=== PATIENT | female | born 1960 | race African-American/Black ===

== ENCOUNTER 2021-08-15 23:29 | Emergency (ER) | payer OTHER ==
--- OUTSIDE RECORDS SUMMARY | 2021-08-15 23:32 | XMS REPORT | Continuity of Care Document ---
:1960 Author Organization [facility] t Address [address] [place] [address] Care Team Providers Name Role Phone Brisa Harvey Attending Clinician Tres Rios MD Attending Clinician Payers Payer Name Policy Type Policy Number Effective Date Expiration Date S ource Problems This patient has no known problems. Allergies, Adverse Reactions, Alerts Allergy Allergy Status Severity Reaction(s) Onset Inactive Treating Comm ents Source Name Type Date Date Clinician Keily Shultz Active Hives [facility] to 7-26 ity of adverse 00:00: [place] reaction 00 Medical s Branch Social History Social Habit Start Date Stop Date Quantity Comments Source Sex Assigned At [facility] Smoking Status Start Date Stop Date Source Unknown if ever smoked [facility] Never smoker [facility] Medications Ordered Filled Start Stop Current Ordering Indication Dosage Frequency Signature Comments Components Source Medication Medication Date Date Medication? Clinician (SIG) Name Name triamcinolo 2019- No 16mg Unive rs ne 10-26 ity of acetonide 17:30: 05:29 [place] (KENALOG) 00 :00 Medical injection Branch 16 mg triamcinolo 2019- No 16mg Unive rs ne 10-26 ity of acetonide 17:30: 05:29 [place] (KENALOG) 00 :00 Medical injection Branch 16 mg methylPREDN Yes [id number] Take by [facility] 10-05 9105 mouth ity of (MEDROL, 00:00: SEE-INSTRU Yaakov as RAJESH,) 4 mg 00 CTIONS. Medica l tablets follow Branch package directions methylPREDN Yes [id number] Take by [facility] 10-05 9105 mouth ity of (MEDROL, 00:00: SEE-INSTRU Yaakov as RAJESH,) 4 mg 00 CTIONS. Medica l tablets follow Branch package directions methylPREDN Yes [id number] Take by [facility] 10-05 9105 mouth ity of (MEDROL, 00:00: SEE-INSTRU Yaakov as RAJESH,) 4 mg 00 CTIONS. Medica l tablets follow Branch package directions methylPREDN Yes [id number] Take by [facility] 10-05 9105 mouth ity of (MEDROL, 00:00: SEE-INSTRU Yaakov as RAJESH,) 4 mg 00 CTIONS. Medica l tablets follow Branch package directions furosemide Yes TAKE 1 Unive rs 20 mg 6-08 TABLET BY ity of tablet 00:00: MOUTH [place] 00 EVERY DAY Medical NEEDED Branch furosemide Yes TAKE 1 Unive rs 20 mg 6-08 TABLET BY ity of tablet 00:00: MOUTH [place] 00 EVERY DAY Medical NEEDED Branch furosemide Yes TAKE 1 Unive rs 20 mg 6-08 TABLET BY ity of tablet 00:00: MOUTH [place] 00 EVERY DAY Medical NEEDED Branch furosemide Yes TAKE 1 Unive rs 20 mg 6-08 TABLET BY ity of tablet 00:00: MOUTH [place] 00 EVERY DAY Medical NEEDED Branch esomeprazol Yes TAKE 1 Univ ers e 40 mg 5-09 CAPSULE BY ity of capsule 00:00: MOUTH [place] 00 EVERY DAY Medical Branch traMADol 50 Yes TAKE 1 Univ ers mg tablet 5-09 TABLET BY ity o f 00:00: MOUTH [place] 00 EVERY 8 Medical HOURS Branch NEEDED esomeprazol Yes TAKE 1 Univ ers e 40 mg 5-09 CAPSULE BY ity of capsule 00:00: MOUTH [place] 00 EVERY DAY Medical Branch traMADol 50 Yes TAKE 1 Univ ers mg tablet 5-09 TABLET BY ity o f 00:00: MOUTH [place] 00 EVERY 8 Medical HOURS Branch NEEDED esomeprazol Yes TAKE 1 Univ ers e 40 mg 5-09 CAPSULE BY ity of capsule 00:00: MOUTH [place] 00 EVERY DAY Medical Branch traMADol 50 Yes TAKE 1 Univ ers mg tablet 5-09 TABLET BY ity o f 00:00: MOUTH [place] 00 EVERY 8 Medical HOURS Branch NEEDED esomeprazol Yes TAKE 1 Univ ers e 40 mg 5-09 CAPSULE BY ity of capsule 00:00: MOUTH [place] 00 EVERY DAY Medical Branch traMADol 50 Yes TAKE 1 Univ ers mg tablet 5-09 TABLET BY ity o f 00:00: MOUTH [place] 00 EVERY 8 Medical HOURS Branch NEEDED losartan-hy Yes 1{tbl} Take 1 Un sara drochloroth 4-28 tablet by ity of iazide 00:00: mouth [place] 100-25 mg 00 daily. Medical per tablet Branch losartan-hy Yes 1{tbl} Take 1 Un sara drochloroth 4-28 tablet by ity of iazide 00:00: mouth [place] 100-25 mg 00 daily. Medical per tablet Branch losartan-hy Yes 1{tbl} Take 1 Un sara drochloroth 4-28 tablet by ity of iazide 00:00: mouth [place] 100-25 mg 00 daily. Medical per tablet Branch losartan-hy Yes 1{tbl} Take 1 Un sara drochloroth 4-28 tablet by ity of iazide 00:00: mouth [place] 100-25 mg 00 daily. Medical per tablet Branch Vital Signs Vital Name Observation Time Observation Value Comments Source Body height 2018-10-26 15:51:00 168.9 cm [facility] Body weight 2018-10-26 15:51:00 89.812 kg [facility] BMI 2018-10-26 15:51:00 31.48 kg/m2 [facility] Body height 2018-10-26 15:51:00 168.9 cm [facility] Body weight 2018-10-26 15:51:00 89.812 kg [facility] BMI 2018-10-26 15:51:00 31.48 kg/m2 [facility] Body height 2018-10-05 13:53:00 168.9 cm [facility] Body weight 2018-10-05 13:53:00 89.812 kg [facility] BMI 2018-10-05 13:53:00 31.48 kg/m2 [facility] Procedures This patient has no known procedures. Encounters Start End Encounter Admission Attending Care Care Encounter Source Date/Time Date/Time Type Type Clinicians Facility Department ID 2018-10-26 2018-10-26 Office MARIA C Nieto [id number] [facility] 10:51:17 11:28:21 Visit Taj S [employer] [id number] it y of Surgical [id number] Yaakov as Specialti [phone] Ri dical es [address] Branch [place] 2018-10-26 2018-10-26 Office MARIA C Nieto [id number] 10:51:17 11:28:21 Visit Taj Ledezma [employer] [id number] Surgical [id number] Specialti [phone] es [address] [place] 2018-10-05 2018-10-05 Office MARIA C Rios [id number] [facility] 08:42:59 09:11:02 Visit Curt Joshua [employer] [id number] it y of Surgical [id number] Yaakov as Specialti [phone] Ri dical es [address] [place] Results This patient has no known results.
[2021-08-16 00:33] LABS: Absolute Lymphocytes (CBC) 2.1 K/uL (0.7-4.9); Hematocrit 36.4 % (36.0-45.0); Lymphocytes % 30.2 % (15.3-44.8); MPV 9.4 fL (7.6-11.3); RBC Red Blood Cell Count 5.15 M/uL (3.86-4.86)
[2021-08-16] MEDS ORDERED: DIPHENHYDRAMINE 50 MG/ML VIAL ONE (00:34)
[2021-08-16] MEDS ORDERED: NA CHLORIDE 0.9% 100 ML ONE (00:34)
[2021-08-16] MEDS ORDERED: METOCLOPRAMIDE 10 MG/2mL INJ ONE (00:34)
[2021-08-16 00:48] LABS: Potassium 3.4 mmol/L (3.5-5.1); Troponin High Sensitivity 35.8 pg/mL (<58.9)
--- NOTE | 2021-08-16 04:40 | EDPHYS ---
Physician Documentation [facility] Name: Sandra Fuller Age: 61 yrs Sex: Female : 1960 Arrival Date: 08/15/2021 Time: 23:34 Bed 7 Private MD: ED Physician Duran Medina HPI: 08/16 04:42 This 61 yrs old Black Female presents to ER via Wheelchair with complaints of Blood ms3 Pressure Problem. 04:42 The patient complains of pain to the generalized. The patient describes the headache as ms3 aching. Onset: The symptoms/episode began/occurred acutely, today. Associated signs and symptoms:. 04:43 61-year-old female presents for hypertension that began 1 hours prior to arrival. ms3 Patient endorses headache. Patient denies chest pain, nausea, vomiting, shortness of breath. Patient states her head pain is an 8/10 and generalized. Patient describes the pain as throbbing.. Onset: The symptoms/episode began/occurred 11 hour(s) ago. Severity of symptoms: At their worst the symptoms were severe in the emergency department the symptoms are unchanged. Historical: - Allergies: 08/15 23:46 No Known Allergies; as6 - Home Meds: 23:46 sucralfate 1 gram Oral tab 1 tab 2 times per day [Active]; omeprazole 40 mg Oral cpDR 1 as6 cap once daily [Active]; losartan-hydrochlorothiazide 100-25 mg oral tab 1 tab once daily [Active]; - PMHx: 23:46 Hypertensive disorder; acid reflux; as6 - PSHx: 23:46 None; as6 - Immunization history:: Client reports receiving the 2nd dose of the Covid vaccine, moderna. - Social history:: Smoking status: Patient denies any tobacco usage or history of. ROS: 08/16 04:43 Constitutional: Negative for fever, and chills. Neck: Negative for injury, pain, and ms3 swelling, Cardiovascular: Negative for chest pain, and palpitations. Respiratory: Negative for shortness of breath, cough, wheezing, and pleuritic chest pain, Abdomen/GI: Negative for abdominal pain, nausea, vomiting, diarrhea, and constipation, MS/Extremity: Negative for injury and deformity, Skin: Negative for injury, rash, and discoloration. Neuro: Positive for headache. All other systems are negative. Exam: 00:01 ECG was reviewed by the Attending Physician. ms3 04:43 Constitutional: This is a well developed, well nourished patient who is awake, alert, ms3 and in no acute distress. Head/Face: Normocephalic, atraumatic. Neck: Trachea midline, no cervical lymphadenopathy. Supple, full range of motion without nuchal rigidity, or vertebral point tenderness. No Meningismus. Chest/axilla: Normal chest wall appearance and motion. Nontender with no deformity. Cardiovascular: Regular rate and rhythm with a normal S1 and S2. No gallops, murmurs, or rubs. Normal PMI, no JVD. No pulse deficits. Respiratory: Lungs have equal breath sounds bilaterally, clear to auscultation and percussion. No rales, rhonchi or wheezes noted. No increased work of breathing, no retractions or nasal flaring. Abdomen/GI: Soft, non-tender, with normal bowel sounds. No distension or tympany. No guarding or rebound. No evidence of tenderness throughout. Skin: Warm, dry with normal turgor. Normal color with no rashes, no lesions, and no evidence of cellulitis. MS/ Extremity: Pulses equal, no cyanosis. Neurovascular intact. Full, normal range of motion. Neuro: Awake and alert, GCS 15, oriented to person, place, time, and situation. Cranial nerves II-XII grossly intact. Motor strength 5/5 in all extremities. Sensory grossly intact. Cerebellar exam normal. Normal gait. Psych: Awake, alert, with orientation to person, place and time. Behavior, mood, and affect are within normal limits. Vital Signs: 08/15 23:44 BP 182 / 77; Pulse 49; Resp 18 S; Temp 97.8(O); Pulse Ox 100% on R/A; Weight 83.91 kg as6 (R); Height 5 ft. 6 in. (167.64 cm) (R); Pain 8/10; 23:57 BP 186 / 84; kd3 06 00:36 BP 173 / 88; Pulse 59; Resp 19; Pulse Ox 100% on R/A; kd3 01:22 BP 170 / 61; Pulse 54; Resp 16; Pulse Ox 100% on R/A; kd3 02:25 BP 150 / 81; Pulse 52; Resp 16; Pulse Ox 100% on R/A; kd3 03:51 BP 136 / 90; Pulse 52; Resp 17; Pulse Ox 99% on R/A; ke1 05:05 BP 142 / 76; Pulse 54; Resp 18; Pulse Ox 99% on R/A; kd3 08/15 23:44 Body Mass Index 29.86 (83.91 kg, 167.64 cm) as6 MDM: 08/15 23:37 Patient medically screened. ms3 08/16 04:43 Differential Diagnosis HTN vs ACS vs ICH. Data reviewed: vital signs, nurses notes, lab ms3 test result(s), EKG, radiologic studies, CT scan, plain films, and as a result, I will discharge patient. Data interpreted: quality assurance monitor body: rate is 52 beats/min, rhythm is normal sinus rhythm, regular, with no ectopy, Interpretation: normal rate, normal rhythm. Test interpretation: by ED physician or midlevel provider: ECG. Counseling: I had a detailed discussion with the patient and/or guardian regarding: the historical points, exam findings, and any diagnostic results supporting the discharge/admit diagnosis, lab results, radiology results, the need for outpatient follow up, to return to the emergency department if symptoms worsen or persist or if there are any questions or concerns that arise at home. ED course: Discussed labs, CT, chest x-ray, physical exam findings with patient. Patient to follow-up with Cardiology in 1 to 2 days. Patient understands and agrees with plan. All questions were answered. Return precautions discussed include worsening symptoms, or any other concerns. On reevaluation patient is alert and oriented x4, in no apparent distress, nontoxic-appearing, speaking full sentences, ambulatory in emergency department.. 08/16 00:11 Order name: Basic Metabolic Panel; Complete Time: 00:51 ms3 08/16 00:11 Order name: CBC with Diff; Complete Time: 00:51 ms3 08/16 00:11 Order name: CT Head Brain wo Cont ms3 08/16 00:11 Order name: Troponin HS; Complete Time: 00:51 ms3 08/16 00:11 Order name: XRAY Chest (1 view) ms3 08/16 03:01 Order name: Troponin High Sensitivity; Complete Time: 04:38 ms3 08/16 00:11 Order name: EKG; Complete Time: 00:12 ms3 08/16 00:11 Order name: Cardiac monitoring; Complete Time: 00: ms3 08/16 00:11 Order name: EKG - Nurse/Tech; Complete Time: : ms3 08/16 00:11 Order name: IV Saline Lock; Complete Time: 00: ms3 08/16 00:11 Order name: Labs collected and sent; Complete Time: 00: ms3 08/16 00:11 Order name: O2 Per Protocol; Complete Time: ms3 08/16 00:11 Order name: O2 Sat Monitoring; Complete Time: : ms3 EC:01 Rate is 51 beats/min. Rhythm is regular. QRS [place] is Normal. PA interval is normal. QRS ms3 interval is normal. Clinical impression: Sinus bradycardia and PVC. Interpreted by me. Administered Medications: 00:35 Drug: Reglan (metoCLOPramide) 10 mg Route: IVP; Site: right forearm; kd3 05:06 Follow up: Response: No adverse reaction kd3 00:35 Drug: Benadryl (diphenhydrAMINE) 25 mg Route: IVP; Site: right forearm; kd3 05:06 Follow up: Response: No adverse reaction kd3 Disposition Summary: 08/16/21 04:40 Discharge Ordered Location: Home ms3 Condition: Stable ms3 Diagnosis - Essential (primary) hypertension ms3 - Headache ms3 Followup: ms3 - With: Bahman Tatum MD - When: 1 - 2 days - Reason: Recheck today's complaints Discharge Instructions: - Discharge Summary Sheet ms3 - General Headache Without Cause ms3 - Hypertension, Adult, [id number] ms3 Forms: - Medication Reconciliation Form ms3 - Thank You Letter ms3 - Antibiotic Education ms3 - Prescription Opioid Use ms3 Signatures: Dispatcher [employer] Duran Jane DO DO ms3 Jag Rubin RN RN as6 Lesly Bee RN RN kd3
--- NOTE | 2021-08-16 04:40 | ER ---
Nurse's Notes [facility] Name: Sandra Fuller Age: 61 yrs Sex: Female : 1960 Arrival Date: 08/15/2021 Time: 23:34 Bed 7 Private MD: Diagnosis: Essential (primary) hypertension;Headache Presentation: 08/15 23:44 Chief complaint: Patient states: "I have been watching my blood pressure go upa nd up as6 and up all day. now I feel dizzy, have a headache". Coronavirus screen: At this time, the client does not indicate any symptoms associated with coronavirus-19. Ebola Screen: No symptoms or risks identified at this time. Initial Sepsis Screen: Does the patient meet any 2 criteria? No. Patient's initial sepsis screen is negative. Does the patient have a suspected source of infection? No. Patient's initial sepsis screen is negative. Risk Assessment: Do you want to hurt yourself or someone else? Patient reports no desire to harm self or others. Onset of symptoms was August 15, 2021. 23:44 Method Of Arrival: Wheelchair as6 23:44 Acuity: MARIA DOLORES 2 as6 Triage Assessment: 23:58 General: Appears in no apparent distress. Behavior is calm, cooperative. kd3 Historical: - Allergies: 23:46 No Known Allergies; as6 - Home Meds: 23:46 sucralfate 1 gram Oral tab 1 tab 2 times per day [Active]; omeprazole 40 mg Oral cpDR 1 as6 cap once daily [Active]; losartan-hydrochlorothiazide 100-25 mg oral tab 1 tab once daily [Active]; - PMHx: 23:46 Hypertensive disorder; acid reflux; as6 - PSHx: 23:46 None; as6 - Immunization history:: Client reports receiving the 2nd dose of the Covid vaccine, moderna. - Social history:: Smoking status: Patient denies any tobacco usage or history of. Screenin:57 Abuse screen: Denies threats or abuse. Denies injuries from another. Nutritional kd3 screening: No deficits noted. Tuberculosis screening: No symptoms or risk factors identified. Fall Risk None identified. Assessment: 23:56 Pain: Complains of pain in HEADACHE. Neuro: Level of Consciousness is awake, alert, kd3 Oriented to person, place, time. Cardiovascular: Patient's skin is warm and dry. Respiratory: Airway is patent Trachea midline Respiratory effort is even, unlabored, Respiratory pattern is regular. 08/16 01:21 Reassessment: Patient and/or family updated on plan of care and expected duration. Pain kd3 level reassessed. Patient is alert, oriented x 3, equal unlabored respirations, skin warm/dry/pink. Patient states feeling better. 02:42 Reassessment: Patient and/or family updated on plan of care and expected duration. Pain kd3 level reassessed. Patient is alert, oriented x 3, equal unlabored respirations, skin warm/dry/pink. General: Appears in no apparent distress. Behavior is calm, cooperative. Vital Signs: 08/15 23:44 BP 182 / 77; Pulse 49; Resp 18 S; Temp 97.8(O); Pulse Ox 100% on R/A; Weight 83.91 kg as6 (R); Height 5 ft. 6 in. (167.64 cm) (R); Pain 8/10; 23:57 BP 186 / 84; kd3 08/16 00:36 BP 173 / 88; Pulse 59; Resp 19; Pulse Ox 100% on R/A; kd3 01:22 BP 170 / 61; Pulse 54; Resp 16; Pulse Ox 100% on R/A; kd3 02:25 BP 150 / 81; Pulse 52; Resp 16; Pulse Ox 100% on R/A; kd3 03:51 BP 136 / 90; Pulse 52; Resp 17; Pulse Ox 99% on R/A; ke1 05:05 BP 142 / 76; Pulse 54; Resp 18; Pulse Ox 99% on R/A; kd3 08/15 23:44 Body Mass Index 29.86 (83.91 kg, 167.64 cm) as6 ED Course: 08/15 23:34 Patient arrived in ED. ja2 23:37 Duran Medina DO is Attending Physician. ms3 23:45 Triage completed. as6 23:48 Lesly Bee, JERSON is Primary Nurse. kd3 23:48 Arm band placed on. as6 23:58 Patient has correct armband on for positive identification. Bed in low position. Call kd3 light in reach. 23:58 No provider procedures requiring assistance completed. kd3 08/16 00:24 Inserted saline lock: 22 gauge in right forearm, using aseptic technique. Blood kd3 collected. 00:34 XRAY Chest (1 view) In Process Unspecified. EDMS 00:51 CT Head Brain wo Cont In Process Unspecified. EDMS 04:39 Bahman Tatum MD is Referral Physician. ms3 05:05 IV discontinued, intact, bleeding controlled, No redness/swelling at site. Pressure kd3 dressing applied. Administered Medications: 00:35 Drug: Reglan (metoCLOPramide) 10 mg Route: IVP; Site: right forearm; kd3 05:06 Follow up: Response: No adverse reaction kd3 00:35 Drug: Benadryl (diphenhydrAMINE) 25 mg Route: IVP; Site: right forearm; kd3 05:06 Follow up: Response: No adverse reaction kd3 Medication: 08/15 23:58 VIS not applicable for this client. kd3 Outcome: 08/16 04:40 Discharge ordered by . ms3 05:05 Discharged to home ambulatory. kd3 05:05 Condition: stable 05:05 Discharge instructions given to patient, Instructed on discharge instructions, follow up and referral plans. Demonstrated understanding of instructions, follow-up care. 05:11 Patient left the ED. kd3 Signatures: Dispatcher [employer] EDMS Duran Medina DO DO ms3 Giovanna Rabago Ashby, RN RN as6 Lesly Bee RN RN kd3 Tanya Peres, RN RN ke1
[2021-08-16 05:22] VITALS: TEMP 97.8
[2021-08-16 05:30] VITALS: O2SAT 99
[2021-08-16 05:31] VITALS: BP 142/76
--- NOTE | 2021-08-16 13:20 | EKG ---
Test Date: 2021-08-16 Test Time: 00:01:03 Import Export Coordinator: SERGIO MEASUREMENT RESULTS: Intervals: Rate: 51 [place]: 184 QRSD: 84 QT: 454 QTc: 418 [place]: P: 61 [place]: 184 QRS: 42 T: 21 INTERPRETIVE STATEMENTS: Sinus bradycardia with occasional premature ventricular complexes Otherwise normal ECG Compared to ECG 04/19/1994 09:16:00 Ventricular premature complex(es) now present Sinus rhythm no longer present Sinus arrhythmia no longer present Early repolarization no longer present Electronically Signed On 08-16-21 13:18:49 CDT by Bahman Tatum
--- NOTE | 2021-08-17 13:02 | RAD REPORT ---
EXAM DESCRIPTION: Chest Single View CLINICAL HISTORY: 61-year-old female with chest pain. TECHNIQUE: Single view, AP portable chest was obtained. COMPARISON: None. FINDINGS: Unremarkable cardiac and mediastinal silhouette. Heart size is mildly prominent, however m ay be exaggerated by low lung volumes and portable technique. Elevation of the RIGHT hemidiaphragm. Lungs are clear without focal opacity, pneumothorax or pleural effusions. The visualized bones are within normal limits. IMPRESSION: No acute cardiopulmonary abnormalities. Electronically signed by: Justyna Espinosa MD 08/16/2021 12:43 AM CDT Due to temporary technical issues with the PACS/Fluency reporting system, reports are being signed by the in house radiologists without review as a courtesy to insure prompt reporting. The interpreting radiologist is fully responsible for the content of the report.
--- NOTE | 2021-08-17 13:04 | RAD REPORT ---
EXAM DESCRIPTION: CT Head Without Intravenous Contrast CLINICAL HISTORY: The patient is 61 years old and is Female; Headache, new or worsening TECHNIQUE: Axial computed tomography images of the head/brain without intravenous contrast. Sagitt al and coronal reformatted images were created and reviewed. This CT exam was performed using one o r more of the following dose reduction techniques: automated exposure control, adjustment of the mA and/or kV according to patient size, and/or use of iterative reconstruction technique. COMPARISON: No relevant prior studies available. FINDINGS: BRAIN: Unremarkable. The valera-white matter differentiation is preserved . No hemorrhag e. No significant white matter disease. No edema. No extra-axial fluid collections. VENTRICLES: Unremarkable. No ventriculomegaly. BONES/JOINTS: No acute fracture. SOFT TISSUES: Unremarkable. SINUSES: Left maxillary sinus mucus retention cyst is present. Mild mucoperiosteal thickening of the maxillary sinuses is noted. MASTOID AIR CELLS: Unremarkable as visualized. No mastoid effusion. ORBITS: Unremarkable as visualized. IMPRESSION: 1. No acute intracranial findings. 2. Chronic maxillary sinus disease. Electronically signed by: Amanda Holloway MD 08/16/2021 1:05 AM CDT Due to temporary technical issues with the PACS/Fluency reporting system, reports are being signed by the in house radiologists without review as a courtesy to insure prompt reporting. The interpreting radiologist is fully responsible for the content of the report.
== END 2021-08-16 05:11 | disposition home or self-care (01) ==
LOC: ER 23:29
DX: I10 Essential (primary) hypertension (principal)
CPT/HCPCS: 93005; 85025; 80048; 36415; 84484 ×2; 70450; 71045; 96375; 96374; 99284; J2765; J1200

== ENCOUNTER 2023-12-21 11:04 | Observation (INO) | payer OTHER ==
--- OUTSIDE RECORDS SUMMARY | 2023-12-21 11:07 | XMS REPORT | Continuity of Care Document ---
Author Name Unknown Address [address] [facility] [address] [place] [address] [facility] thconnect Address [address] [facility]. [address] [place] [address] Care Team Providers Care Caser Up Name Role Phone Saúl Sanches Attending Clinician Unavailable Taj Harvey Attending Clinician [phone] Curt Rios MD Attending Clinician Saúl Sanches Admitting Clinician Unavailable Payers Payer Name Policy Type Policy Number Effective Date Expirati on Date Source Allergies, Adverse Reactions, Alerts Allergy Name Allergy Type Status Severity Reaction(s) Onset Date Inactive Date Treating Clinician Comments Source Keily Shultz ty to adverse reaction s Active Hives 10-05 00:00: 00 [facility] Social History Social Habit Start Date Stop Date Quantity Comments Source Sex Assigned At [facility] Smoking Status Start Date Stop Date Source Unknown if ever smoked [facility] Never smoker [facility] Medications Ordered Medication Name Filled Medication Name Start Date Stop Date Current Medication? Ordering Clinician Indication Dosage Frequency Signature (SIG) Comments Components Source triamcinolo ne acetonide (KENALOG) injection 16 mg 16 17:30: 00 10-27 05:29 :00 No 16mg [facility] methylPREDN ISolone (MEDROL, RAJESH,) 4 mg tablets 10-05 00:00: 00 Yes [id number] Take by mouth SEE-INSTRU CTIONS. follow package directions [facility] furosemide 20 mg tablet 08-18 00:00: 00 Yes TAKE 1 TABLET BY MOUTH EVERY DAY NEEDED [facility] esomeprazol e 40 mg capsule 07-19 00:00: 00 Yes TAKE 1 CAPSULE BY MOUTH EVERY DAY [facility] traMADol 50 mg tablet 07-19 00:00: 00 Yes TAKE 1 TABLET BY MOUTH EVERY 8 HOURS NEEDED [facility] losartan-hy drochloroth iazide 100-25 mg per tablet 07-08 00:00: 00 Yes 1{tbl} Take 1 tablet by mouth daily. [facility] Vital Signs Vital Name Observation Time Observation Value Comments S ource Body height 2018-10-26 15:51:00 168.9 cm [facility] Body weight 2018-10-26 15:51:00 89.812 kg [facility] BMI 2018-10-26 15:51:00 31.48 kg/m2 [facility] Body height 2018-10-26 15:51:00 168.9 cm [facility] Body weight 2018-10-26 15:51:00 89.812 kg [facility] BMI 2018-10-26 15:51:00 31.48 kg/m2 [facility] Body height 2018-10-05 13:53:00 168.9 cm [facility] Body weight 2018-10-05 13:53:00 89.812 kg [facility] BMI 2018-10-05 13:53:00 31.48 kg/m2 [facility] Encounters Start Date/Time End Date/Time Encounter Type Admission Type Attending Clinicians Care Facility Care Department Encounter ID Source 2023-04-06 12:00:00 2023-04-06 12:00:00 Outpatient Saúl Crespo [facility] [id number] [facility] 2022-03-11 12:00:00 2022-03-11 12:00:00 Outpatient Saúl Crespo [facility] [id number] [facility] 2018-10-26 10:51:17 2018-10-26 11:28:21 Office Visit Taj Nieto [facility] [id number] [facility] 2018-10-26 10:51:17 2018-10-26 11:28:21 Office Visit Taj Nieto [facility] [id number] 2018-10-05 08:42:59 2018-10-05 09:11:02 Office Visit Curt Rios [facility] [id number] [facility]
--- NOTE | 2023-12-21 12:19 | RAD REPORT ---
EXAMINATION: ONE VIEW CHEST XR CLINICAL INDICATION: Female, 63 years old.DYSPNEA TECHNIQUE: 1 View, AP supine, X-ray of the chest was performed. [id number]. COMPARISON: 08/16/2021 FINDINGS: Lungs and pleura: Clear lungs. No effusion. Heart and mediastinum: Normal heart size. Unremarkable mediastinal contours. Osseous structures: No acute abnormality. Tubes/lines: None Other: None. IMPRESSION: No acute intrathoracic abnormality.
[2023-12-21 13:02] LABS: Absolute Eosinophils 0.1 K/uL (0-0.5); Absolute Lymphocytes (CBC) 1.3 K/uL (0.7-4.9); Absolute Monocytes 0.3 K/uL (0.1-1.3); Absolute Neutrophil 4.3 K/uL (1.8-8.0); Basophils % 0.7 % (0-1.3); Eosinophils % 1.6 % (0-4.4); Hematocrit 32.6 % (36.0-45.0); Hemoglobin 10.4 g/dL (12.0-15.0); Lymphocytes % 22.2 % (15.3-44.8); MCH 23.3 pg (27.0-35.0); MCV 72.9 fL (80-100); MPV 9.5 fL (7.6-11.3); Monocytes % 4.8 % (3.3-12.3); Neutrophils % 70.7 % (41.7-73.7); Nucleated Red Blood Cells % 0.1 % (0-0); Platelets 193 thou/uL (152-406); RBC Red Blood Cell Count 4.47 M/uL (3.86-4.86); Red Cell Distribution Width 17.5 % (12.1-15.2)
[2023-12-21 13:03] LABS: PT Prothrombin Time 13.2 SECONDS (9.4-12.5); Protime INR 1.18
--- NOTE | 2023-12-21 13:13 | RAD REPORT ---
EXAMINATION: CT HEAD WITHOUT CONTRAST CLINICAL INDICATION: Female, 63 years old.headache dizzy TECHNIQUE: Axial CT images from the skull base to the vertex without intravenous contrast. Coronal an d sagittal reformatted images were created from the data set. One or more of the following dose reduction techniques were used: Automated exposure control, adjustment of the mA and/or kV according to patient size, and/or iterative reconstruction. Unless otherwise specified, incidental findings do not require dedicated imaging follow-up. [id number]. COMPARISON: 08/16/2021 FINDINGS: INTRACRANIAL: No acute intracranial hemorrhage. No hydrocephalus. No mass effect or midline shift. No significant white matter disease. VASCULATURE: No visualized abnormalities in the arteries or dural venous sinuses. SCALP/SKULL: No significant soft tissue or osseous abnormalities. SINUSES: Mucous retention cyst in the left maxillary sinus. IMPRESSION: No acute intracranial abnormality.
--- NOTE | 2023-12-21 13:22 | RAD REPORT ---
EXAM: Angio Aorta For Dissection CLINICAL INDICATION: Female, 63 years chest/abd pain, radiates to right arm TECHNIQUE: CTA of the aorta was obtained including the chest, abdomen and pelvis, with IV contrast, a s per department protocol. Axial, sagittal and coronal reconstructions were obtained. Post-processing was applied at the acquisition scanner with concurrent physician supervision which in cludes 3D reconstructions, MIPs, volume rendered images and/or shaded surface rendering. One or more of the following dose reduction techniques were used: Automated exposure control, adjustment of the mA and/or kV according to the patient size, and/or iterative reconstruction. Unless otherwise specified, incidental findings do not require dedicated imaging follow-up. [id number]. COMPARISON: Same-day chest radiograph FINDINGS: Chest: LOWER NECK/CHEST WALL: Visualized thyroid gland and soft tissues are normal. LUNGS AND AIRWAYS: Airways are clear. No evidence of airspace or interstitial process. No nodules. PLEURA: No pleural effusion. No pneumothorax. Hemidiaphragms are normally positioned. MEDIASTINUM AND LYMPH NODES: No mediastinal mass or fluid collection. Normal size mediastinal, hilar, and axillary lymph nodes. THORACIC AORTA: Normal caliber and configuration. PULMONARY ARTERIES: Normal caliber. HEART: Unremarkable. Abdomen/Pelvis LIVER: Hepatic steatosis GALLBLADDER/BILE DUCTS: No biliary ductal dilatation. PANCREAS: No mass, ductal dilation, or marla-pancreatic fluid. SPLEEN: Normal size. No focal lesion. ADRENALS: Normal; no mass. KIDNEYS AND URETERS: Normal size and contour. No hydronephrosis. Left renal cyst. GASTROINTESTINAL TRACT: Stomach is non-dilated. Small bowel has normal course and caliber. No colonic wall thickening or pericolonic inflammatory changes. PERITONEUM: Trace pelvic free fluid. LYMPH NODES: No lymphadenopathy. ABDOMINAL AORTA AND OTHER VESSELS: Normal caliber aorta and IVC. URINARY BLADDER: Normal contour. REPRODUCTIVE ORGANS: No pathologic process. MUSCULOSKELETAL: No acute or suspicious osseous abnormality. Mild scattered degenerative changes are present in the spine. ADDITIONAL FINDINGS: None IMPRESSION: No aortic aneurysm or dissection. No pulmonary embolus. No acute or significant abnormalities in the chest, abdomen, or pelvis.
[2023-12-21] MEDS ORDERED: ONDANSETRON 4 MG/2 ML VIAL ONE (13:24)
[2023-12-21 13:25] LABS: AST/SGOT 11 U/L (15-37); Albumin 3.5 g/dL (3.4-5.0); Albumin/Globulin Ratio 0.8 (1.1-1.8); Alkaline Phosphatase 84 U/L (45-117); Anion Gap 7.3 mEq/L (5.0-15.0); BUN Blood Urea Nitrogen 10 mg/dL (7-18); Bicarbonate 26 mEq/L (21-32); Bilirubin Total 0.3 mg/dL (0.2-1.0); Globulin 4.3 g/dL (2.3-3.5); Glomerular Filtration Rate 83 ml/min (=/>90); Glucose Level 98 mg/dL (74-106); NT PRO-BNP 87 pg/mL (<125); Potassium 3.3 mEq/L (3.5-5.1); Protein, Total 7.8 g/dL (6.4-8.2); Sodium Level 139 mEq/L (136-145); Troponin High Sensitivity 33.8 pg/mL (<58.9)
[2023-12-21] MEDS ORDERED: MORPHINE 4 MG/ML SYR ONE (13:25)
[2023-12-21 13:26] LABS: ALT/SGPT < 14 U/L (13-56); Bilirubin Direct < 0.2 mg/dL (0-0.2); Bilirubin Indirect, Calculated 0.1 mg/dL (0.2-0.8)
[2023-12-21] MEDS ORDERED: SUMATRIPTAN SUCC 6MG/0.5ML VIAL SQ ONE (14:14)
--- NOTE | 2023-12-21 15:28 | ER ---
Nurse's Notes [facility] Name: Sandra Fuller Age: 63 yrs Sex: Female : 1960 Arrival Date: 12/21/2023 Time: 11:04 Bed 7 Private MD: Diagnosis: Dizziness and giddiness;Paresthesia of skin;Muscle weakness (generalized) Presentation: 12/20 11:15 Chief complaint: Patient states: right arm pain, headache, and nausea that began aa5 yesterday. Pt's states "I can't even open my eyes because the light bothers me and my vision is blurry". Pt states "I restarted Ozempic yesterday and since then I've been feeling like this". 11:15 Acuity: MARIA DOLORES 3 aa5 11:15 Coronavirus screen: nausea. Ebola Screen: Patient denies travel to an Ebola-affected [facility] area in the 21 days before illness onset. Initial Sepsis Screen: Does the patient meet any 2 criteria? No. Patient's initial sepsis screen is negative. Does the patient have a suspected source of infection? No. Patient's initial sepsis screen is negative. Risk Assessment: Do you want to hurt yourself or someone else? Patient reports no desire to harm self or others. Onset of symptoms was December 20, 2023. 11:15 Method Of Arrival: Wheelchair aa5 Historical: - Allergies: 11:25 No Known Allergies; aa5 - PMHx: 11:25 acid reflux; Hypertensive disorder; aa5 - Immunization history:: Client reports receiving the 2nd dose of the Covid vaccine. - Infectious Disease History:: Denies. - Family history:: not pertinent. - Hospitalizations: : No recent hospitalization is reported. - Social history:: Smoking status: unknown. Screenin:05 [facility] ED Fall Risk Assessment (Adult) History of falling in the last 3 months, tm6 including since admission No falls in past 3 months (0 pts) Confusion or Disorientation No (0 pts) Intoxicated or Sedated No (0 pts) Impaired Gait No (0 pts) Mobility Assist Device Used No (0 pt) Altered Elimination No (0 pt) Score/Fall Risk Level 0 - 2 = Low Risk Oriented to surroundings, Maintained a safe environment, Educated pt \\T\\ family on fall prevention, incl call for assistance when getting out of bed. Abuse screen: Denies threats or abuse. Denies injuries from another. Nutritional screening: No deficits noted. Tuberculosis screening: No symptoms or risk factors identified. Assessment: 12:05 General: Appears uncomfortable, Behavior is cooperative. Pain: Complains of pain in tm6 right foot, left foot, right arm and left arm Quality of pain is described as tingling, Pain began 0700. Neuro: Level of Consciousness is awake, alert, obeys commands, Oriented to person, place, time, situation, Reports paresthesias in right hand, left hand, right foot and left foot weakness general. Cardiovascular: Patient's skin is warm and dry. Rhythm is sinus bradycardia with 1st degree heart block. Respiratory: Airway is patent Respiratory effort is labored, Respiratory pattern is tachypnea Breath sounds are clear. GI: No signs and/or symptoms were reported involving the gastrointestinal system. Abdomen is flat, non-distended. : No signs and/or symptoms were reported regarding the genitourinary system. EENT: No signs and/or symptoms were reported regarding the EENT system. Derm: No signs and/or symptoms reported regarding the dermatologic system. Musculoskeletal: Reports weakness in general tingling in hands and feet. 13:22 Reassessment: Patient and/or family updated on plan of care and expected duration. Pain tm6 level reassessed. Patient is alert, oriented x 3, equal unlabored respirations, skin warm/dry/pink. 14:55 Reassessment: Patient and/or family updated on plan of care and expected duration. Pain tm6 level reassessed. Patient is alert, oriented x 3, equal unlabored respirations, skin warm/dry/pink. 19:00 Reassessment: Patient and/or family updated on plan of care and expected duration. Pain ph level reassessed. Patient is alert, oriented x 3, equal unlabored respirations, skin warm/dry/pink. ASSUMED CARE OF PT. PT IS ADMITTED. VS STABLE. CALL DE JESUS IN REACH. FAMILY AT BEDSIDE. NO NEEDS AT THIS TIME. Vital Signs: 11:15 BP 144 / 80; Pulse 54; Resp 18 S; Temp 97.8(TE); Pulse Ox 100% on R/A; aa5 13:20 BP 138 / 76; Pulse 49; Pulse Ox 100% on R/A; FiO2 95 %; Pain 8/10; tm6 14:52 BP 160 / 83; Pulse 54; Pulse Ox 95% on R/A; MAP 105 mmHg; ph 16:00 BP 160 / 82; Pulse 53; Resp 16; Pulse Ox 98% on R/A; ph 17:00 BP 150 / 90; Pulse 50; Resp 18; Pulse Ox 100% on R/A; ph 18:24 BP 145 / 85; Pulse 52; Resp 18; Pulse Ox 100% on R/A; ph 19:17 BP 134 / 77; Pulse 54; Resp 16; Temp 96.9(TE); Pulse Ox 100% on R/A; mt4 19:50 BP 124 / 77; Pulse 56; Resp 17; Temp 97; Pulse Ox 100% on R/A; ph 13:20 Pain Scale: Adult tm6 ED Course: 11:05 Patient arrived in ED. im 11:08 Eddie Delgado MD is Attending Physician. rn 11:15 Arm band placed on Patient placed in an exam room, on a stretcher. aa5 11:19 Sonia Ch, JERSON is Primary Nurse. tm6 11:25 Triage completed. aa5 11:41 EKG done, by ED staff, reviewed by Eddie Delgado MD. tm6 12:00 Initial lab(s) drawn, by mt, sent to lab. Missed attempt(s): 22 gauge in left upper tm6 arm. Bleeding controlled, band aid applied, catheter tip intact. 12:01 Basic Metabolic Panel Sent. tm6 12:01 CBC with Diff Sent. tm6 12:01 LFT's Sent. tm6 12:01 NT PRO-BNP Sent. tm6 12:01 PT-INR Sent. tm6 12:01 Troponin HS Sent. tm6 12:05 Patient has correct armband on for positive identification. Placed in gown. Bed in low tm6 position. Call light in reach. Side rails up X2. Provided Education on: use of call de jesus. Client placed on continuous cardiac and pulse oximetry monitoring. NIBP monitoring applied. compliance monitor on. Pulse ox on. NIBP on. Door closed. Noise minimized. Lights dimmed. Warm blanket given. Pillow given. 12:16 XRAY Chest (1 view) In Process Unspecified. EDMS 12:51 Inserted saline lock: 22 gauge in left wrist, using aseptic technique. Blood collected. tm6 Flushed with 10 mL NS. 13:05 CT Head Brain wo Cont In Process Unspecified. EDMS 13:07 CT Aorta for Dissection In Process Unspecified. EDMS 15:27 Aidan Castillo is Hospitalizing Provider. rn 18:25 No provider procedures requiring assistance completed. Patient admitted, IV remains in ph place. Administered Medications: 13:34 Drug: morphine IVP or IV 4 mg IVP once over 4 mins Route: IVP; Infused Over: 4 mins; ph Site: left wrist; 14:18 Follow up: Response: No adverse reaction tm6 13:34 Drug: Ondansetron IVP 4 mg IVP once; over 2 minutes Route: IVP; Site: left wrist; ph 14:18 Follow up: Response: No adverse reaction tm6 14:17 Drug: SUMAtriptan Sub-Q 6 mg Sub-Q once Route: Sub-Q; Site: abdomen; tm6 15:33 Follow up: Response: No adverse reaction tm6 Medication: 12:05 VIS not applicable for this client. tm6 Outcome: 15:27 Decision to Hospitalize by Provider. rn 19:50 Admitted to Med/surg accompanied by nurse, via wheelchair, room 209, Other SBAR FAXED ph 19:50 Condition: good 20:10 Patient left the ED. ph Signatures: Dispatcher [employer] Eddie Franklin MD MD rn Calderon, Audri, RN RN aa5 Abena Gilbert, RN RN ph Lorraine Escudero Tawney RN RN tm6 Yaya Khan RN RN mt4
--- NOTE | 2023-12-21 15:28 | EDPHYS ---
Physician Documentation [facility] Name: Sandra Fuller Age: 63 yrs Sex: Female : 1960 Arrival Date: 12/21/2023 Time: 11:04 Bed 7 Private MD: ED Physician Eddie Delgado HPI: 12/20 11:33 This 63 yrs old Black Female presents to ER via Wheelchair with complaints of General rn Weakness, Shortness Of Breath. 11:34 Patient states not feeling well since yesterday. Reports headache, light sensitivity, rn shortness of breath, generalized weakness and nausea. Just restarted Ozempic dosing yesterday after being off of it for a while. No new medication changes otherwise. No fever or chills. No trauma. No neck stiffness. Patient also reports right arm pain that is worse with movement. No chest pain. No abdominal pain. No vomiting or diarrhea. Patient reports both legs feel tingling and weakness is generalized. Denies blurred vision or diplopia, reports light sensitivity when opening eyes. Onset: The symptoms/episode began/occurred last night. Severity of symptoms: At their worst the symptoms were moderate in the emergency department the symptoms are unchanged. The patient has not experienced similar symptoms in the past. The patient has not recently seen a physician. Historical: - Allergies: 11:25 No Known Allergies; aa5 - PMHx: 11:25 acid reflux; Hypertensive disorder; aa5 - Immunization history:: Client reports receiving the 2nd dose of the Covid vaccine. - Infectious Disease History:: Denies. - Family history:: not pertinent. - Hospitalizations: : No recent hospitalization is reported. - Social history:: Smoking status: unknown. ROS: 11:34 Constitutional: Negative for fever, chills, and weight loss, Eyes: Positive for light rn sensitivity Neck: Negative for injury, pain, and swelling, Cardiovascular: Negative for chest pain, palpitations, and edema, Respiratory: Positive for shortness of breath Abdomen/GI: Positive for nausea, negative for abdominal pain : Negative for injury, bleeding, discharge, and swelling, MS/Extremity: Negative for injury and deformity, Neuro: Positive for headache and generalized weakness with numbness and tingling of bilateral lower extremities Exam: 11:34 Constitutional: This is a well developed, well nourished patient who is awake, alert, rn slow to respond, seems to be in pain, improves after turning off room light. Head/Face: Normocephalic, atraumatic. Eyes: No nystagmus. Pupils equally round ENT: Dry mucous membranes Neck: No meningismus or masses Cardiovascular: Bradycardic, regular Respiratory: Speaking full sentences, unlabored Abdomen/GI: Soft, nontender MS/ Extremity: Pulses equal, no cyanosis. Neuro: Awake and alert, GCS 15, oriented to person, place, time, and situation. Cranial nerves II-XII grossly intact. Motor strength 4/5 in all extremities. Slight drift noted in right upper extremity but patient unable to say if secondary to pain. Sensory grossly intact. 12:06 ECG was reviewed by the Attending Physician. rn Vital Signs: 11:15 BP 144 / 80; Pulse 54; Resp 18 S; Temp 97.8(TE); Pulse Ox 100% on R/A; aa5 13:20 BP 138 / 76; Pulse 49; Pulse Ox 100% on R/A; FiO2 95 %; Pain 8/10; tm6 14:52 BP 160 / 83; Pulse 54; Pulse Ox 95% on R/A; MAP 105 mmHg; ph 16:00 BP 160 / 82; Pulse 53; Resp 16; Pulse Ox 98% on R/A; ph 17:00 BP 150 / 90; Pulse 50; Resp 18; Pulse Ox 100% on R/A; ph 18:24 BP 145 / 85; Pulse 52; Resp 18; Pulse Ox 100% on R/A; ph 19:17 BP 134 / 77; Pulse 54; Resp 16; Temp 96.9(TE); Pulse Ox 100% on R/A; mt4 19:50 BP 124 / 77; Pulse 56; Resp 17; Temp 97; Pulse Ox 100% on R/A; ph 13:20 Pain Scale: Adult tm6 MDM: 11:08 Patient medically screened. rn 14:08 ED course: Patient overall has improved. No acute findings and workup including CT head rn and CT aorta. Labs unremarkable for emergent condition. Patient able to ambulate to bathroom but reported increased pain and still persistent dizziness. Numbness and tingling have resolved and no focal weakness that she reports. Will try sumatriptan hand and reeval.. 15:26 Differential Diagnosis CVA, TIA, anxiety, metabolic disorder, medication side effect rn from Ozempic, dehydration, vertigo. Data reviewed: vital signs, nurses notes, lab test result(s), EKG, radiologic studies, CT scan, plain films, and as a result, I will admit patient. Consideration of Admission/Observation Escalation of care including admission/observation considered. Care significantly affected by the following chronic conditions: Hypertension. Counseling: I had a detailed discussion with the patient and/or guardian regarding the historical points, exam findings, and any diagnostic results supporting the discharge/admit diagnosis, lab results, radiology results, the need for further work-up and treatment in the hospital. ED course: Patient still reporting dizziness, headache, trouble ambulating. CT head negative. CT aorta negative. Will admit to hospitalist service for further evaluation and care.. 12/20 11:26 Order name: Basic Metabolic Panel; Complete Time: 13:28 rn 12/20 11:26 Order name: CBC with Diff; Complete Time: 13:23 rn 12/20 11:26 Order name: LFT's; Complete Time: 13:28 rn 12/20 11:26 Order name: NT PRO-BNP; Complete Time: 13:28 rn 12/20 11:26 Order name: PT-INR; Complete Time: 13:23 rn 12/20 11:26 Order name: Troponin HS; Complete Time: 13:28 rn 12/20 17:02 Order name: Ferritin EDNC 12/20 17:02 Order name: Iron EDNC 12/20 17:02 Order name: Thyroid Stimulating Hormone EDNC 12/20 17:02 Order name: Urinalysis w/ reflexes EDNC 12/20 17:02 Order name: CBC with Automated Diff EDNC 12/20 17:02 Order name: CBC with Automated Diff EDNC 12/20 17:02 Order name: CBC with Automated Diff EDNC 12/20 17:02 Order name: Comprehensive Metabolic Panel EDNC 12/20 17:02 Order name: Comprehensive Metabolic Panel EDNC 12/20 17:02 Order name: Comprehensive Metabolic Panel EDNC 12/20 17:02 Order name: Lipid Profile EDNC 12/20 17:02 Order name: Lipid Profile EDNC 12/20 17:02 Order name: Magnesium EDNC 12/20 17:02 Order name: Magnesium EDNC 12/20 17:02 Order name: Magnesium EDNC 12/20 17:02 Order name: Troponin High Sensitivity EDMS 12/20 17:02 Order name: Troponin High Sensitivity [facility] 12/20 17:02 Order name: Troponin High Sensitivity [facility] 12/20 11:26 Order name: XRAY Chest (1 view); Complete Time: 12:35 rn 12/20 11:26 Order name: CT Head Brain wo Cont; Complete Time: 13:23 rn 12/20 11:26 Order name: CT Aorta for Dissection; Complete Time: 13:23 rn 12/20 15:28 Order name: Stroke Protocol MRI rn 12/20 17:17 Order name: MRI [facility] 12/20 17:02 Order name: Physical Therapy Consult [facility] 12/20 11:26 Order name: Cardiac monitoring; Complete Time: 11:40 rn 12/20 11:26 Order name: EKG - Nurse/Tech; Complete Time: 11:40 rn 12/20 11:26 Order name: IV Saline Lock; Complete Time: 12:51 rn 12/20 11:26 Order name: Labs collected and sent; Complete Time: 12:01 rn 12/20 11:26 Order name: O2 Per Protocol; Complete Time: 11:40 rn 12/20 11:26 Order name: O2 Sat Monitoring; Complete Time: 11:40 rn 12/20 12:11 Order name: Labs - recollect needed: all tubes; Complete Time: 12:51 bc6 EC:06 Rate is 52 beats/min. Rhythm is regular. QRS [place] is Normal. [place] interval is normal. QRS rn interval is normal. QT interval is normal. No Q waves. T waves are Normal. No ST changes noted. Clinical impression: Sinus bradycardia. Interpreted by me. Reviewed by me. Administered Medications: 13:34 Drug: morphine IVP or IV 4 mg IVP once over 4 mins Route: IVP; Infused Over: 4 mins; ph Site: left wrist; 14:18 Follow up: Response: No adverse reaction tm6 13:34 Drug: Ondansetron IVP 4 mg IVP once; over 2 minutes Route: IVP; Site: left wrist; ph 14:18 Follow up: Response: No adverse reaction tm6 14:17 Drug: SUMAtriptan Sub-Q 6 mg Sub-Q once Route: Sub-Q; Site: abdomen; tm6 15:33 Follow up: Response: No adverse reaction tm6 Disposition Summary: 12/21/23 15:27 Hospitalization Ordered Notes: Hospitalization Status: Observation rn Provider: Aidan Castillo rn Location: Telemetry/MedSurg (observation) rn Condition: Stable rn Problem: new rn Symptoms: are unchanged rn Bed/Room Type: Standard rn Room Assignment: 209(12/21/23 18:33) bc6 Diagnosis - Dizziness and giddiness rn - Paresthesia of skin rn - Muscle weakness (generalized) rn Forms: - Medication Reconciliation Form rn - SBAR form rn - Leadership Thank You Letter rn Signatures: Dispatcher [employer] EDMS Eddie Delgado MD MD rn Calderon, Audri RN RN aa5 Abena Gilbert, RN RN Connie Gerardo bc6 Sonia Ch RN RN tm6 Corrections: (The following items were deleted from the chart) 11: 11:26 BASIC METABOLIC PANEL+C.LAB.BRZ ordered. EDMS EDMS 11: 11:26 CBC+H.LAB.BRZ ordered. EDMS EDMS 11: 11:26 HEPATIC FUNCTION+C.LAB.BRZ ordered. EDMS EDMS 11: 11:26 PROBNP+C.LAB.BRZ ordered. EDMS EDMS 11: 11:26 PROTIME (+INR)+COAG.LAB.BRZ ordered. EDMS EDMS 11: 11:26 Troponin High Sensitivity+C.LAB.BRZ ordered. EDMS EDMS 11: 11:26 Chest Single View+RAD.RAD.BRZ ordered. EDMS EDMS 11: 11:27 Head Brain Wo Cont+CT.RAD.BRZ ordered. EDMS EDMS 11: 11:27 Angio Aorta For Dissection+CT.RAD.BRZ ordered. EDMS EDMS 18:33 15:27 rn bc6
--- NOTE | 2023-12-21 15:37 | P.HP ---
Certification for Inpatient Patient admitted to: Observation With expected LOS: <2 Midnights Practitioner: I am a practitioner with admitting privileges, knowledge of patient current condition, hospital course, and medical plan of care. Services: Services provided to patient in accordance with Admission requirements found in Title 42 Section 412.3 of the Code of Federal Regulations Patient History Date of Service: 12/21/23 Reason for admission: Dizziness, paresthesias, subjective:Patient admitted with chest pain. Pa History of Present Illness: Ms. Fuller is a 63-year-old female with past medical history of hypertension and GERD. Ms. Fuller gives a confusing history. Apparently she restarted Ozempic 1 mg last p.m. and then started to feel poorly. She describes a sign ificant headache like a band around the top of her head, photophobia, dizziness, chest pain and shortness of breath, and paresthesias to her right side to include pain in the right arm. She presented to the emergency department today for relief of her headache. CT head, CT dissection, and chest x-ray all negative. Morphine and then sumatriptan were given in an effort to reduce her headache. After the sumatriptan she did have minimal relief and tried to ambulate to the bathroom. Apparently she stumbled and almost fell but her significant other caught her. She will be observed overnight and an MRI of the brain will be performed. At present she is hemodynamically stable with a stroke scale of 0. Allergies codeine Adverse Reaction (Verified 12/21/23 17:10) Home medications list reviewed: Yes - Past Medical/Surgical History Has patient received pneumonia vaccine in the past: No Diabetic: No -: Hypertension -: GERD -: Environmental allergies Past Surgical History: Patient denies surgical history Psychosocial/ Personal History: Lives at home with her significant other - Family History Family History: Reviewed- Non-Contributory - Social History Smoking Status: Unknown if ever smoked Alcohol use: No CD- Drugs: No Caffeine use: Yes Place of Residence: Home Review of Systems 10-point ROS is otherwise unremarkable General: Weakness, Malaise Eyes: Other (photophobia) ENT: Unremarkable Respiratory: Shortness of Breath Cardiovascular: Chest Pain, As per HPI Gastrointestinal: Nausea, As per HPI Genitourinary: Unremarkable Musculoskeletal: Other (weakness, tingling) Integumentary: Unremarkable Neurological: Weakness, Numbness, Incoordination Lymphatics: Unremarkable Physical Examination - Vital Signs Blood Pressure: 143/81 Pulse: 50 Respirations: 18 Pulse Ox (%): 100 - Physical Exam General: Alert, In no apparent distress, Cooperative HEENT: Atraumatic, Normocephalic, Other (a&o, shielding eyes from light) Neck: Supple Respiratory: Normal air movement Cardiovascular: No edema, Regular rate/rhythm, Normal S1 S2, Other (chad with 1st degree block) Capillary refill: <2 Seconds Gastrointestinal: Normal bowel sounds Musculoskeletal: No clubbing, No swelling Integumentary: No rashes Neurological: Normal speech, Normal tone, Normal affect, Other (NIHSS zero) Lymphatics: No axilla or inguinal lymphadenopathy External genitalia: Deferred Rectal: Deferred - Studies Laboratory Data (last 24 hrs) 12/21/23 12/21/23 12/21/23 12:50 12:50 12:50 WBC 6.00 Hgb 10.4 L Hct 32.6 L Plt Count 193 PT 13.2 H INR 1.18 Sodium 139 Potassium 3.3 L BUN 10 Creatinine 0.81 Glucose 98 Total Bilirubin 0.3 AST 11 L ALT < 14 Alkaline Phosphatase 84 Assessment and Plan - Plan angina trend troponins tele asa atorvastatin monitor and trend blood pressure continue losartan 100mg po daily but hold hctz headache with dizziness with paresthesias/TIA MRI to r/o vertebro-basilar stroke folic acid statin as above GERD sucralfate protonix constipation possible adverse effect of ozempic lactulose gentle hydration hold ozempic hypokalemia monitor and replete Anemia iron and ferritin eval could be source of VELEZ VTE/GI prophylaxis lovenox/protonix Discharge Plan: Home Plan to discharge in: 24 Hours - Advance Directives Does patient have a Living Will: No Does patient have a Durable POA for Healthcare: No - Code Status/Comfort Care Code Status Assessed: Yes (Full)
[2023-12-21] MEDS ORDERED: LACTULOSE 20 GM/30 ML UCUP PO PRN (16:50)
[2023-12-21] MEDS ORDERED: SODIUM CHLORIDE 0.9% 10ML INJ IV PRN (16:50)
[2023-12-21] MEDS: NA CHLORIDE 0.9% 1,000 ML IV SCH (17:00)
--- NOTE | 2023-12-21 17:17 | RAD REPORT ---
EXAMINATION: MRI BRAIN WITHOUT CONTRAST CLINICAL INDICATION: Female, 63 years old. DIZZINESS TECHNIQUE: Multiplanar multisequence MR images of the brain were obtained without intravenous contras t. Unless otherwise specified, incidental findings do not require dedicated imaging follow-up. [id number]. COMPARISON: 12/21/2023 FINDINGS: INTRACRANIAL: Diffusion-weighted images show no acute or early subacute infarction. No abnormal brain parenchymal signal. The ventricles are normal in size and morphology. No augmented susceptibility. There is no mass effect or midline shift. No abnormal extraaxial fluid collection. A few scattered fo ci of T2/FLAIR hyperintense signal intensity within the subcortical deep white matter that is nonspecific and could reflect minimal chronic small vessel ischemic changes. Partially empty sella, t ypically normal variant. VASCULATURE: Normal signal voids in the larger intracranial arteries and dural venous sinuses. SINUSES: Left maxillary sinus mucus retention cyst. BONE: The marrow signal pattern is within normal limits. IMPRESSION: No significant intracranial abnormalities. Specifically, no evidence of acute infarct.
[2023-12-21 20:48] VITALS: O2SAT 100
[2023-12-21] MEDS: SUCRALFATE 1 GM TABLET PO SCH (21:53)
[2023-12-21] MEDS: ATORVASTATIN 40 MG TAB PO SCH (21:53)
[2023-12-21] MEDS: PANTOPRAZOLE 40 MG INJ IVP SCH (21:54)
[2023-12-21 22:21] VITALS: BMI 29.0
[2023-12-21 22:31] LABS: Ferritin 291.4 ng/mL (8-252); Troponin High Sensitivity 32.7 pg/mL (<58.9)
[2023-12-22 06:31] LABS: Absolute Basophils 0.1 K/uL (0-0.5); Absolute Eosinophils 0.2 K/uL (0-0.5); Absolute Lymphocytes (CBC) 2.1 K/uL (0.7-4.9); Absolute Monocytes 0.3 K/uL (0.1-1.3); Absolute Neutrophil 4.1 K/uL (1.8-8.0); Basophils % 1.1 % (0-1.3); Eosinophils % 3.4 % (0-4.4); Hemoglobin 9.9 g/dL (12.0-15.0); Lymphocytes % 31.2 % (15.3-44.8); MCH 23.9 pg (27.0-35.0); MCHC 33.1 g/dL (32.0-36.0); MCV 72.2 fL (80-100); Monocytes % 5.1 % (3.3-12.3); Neutrophils % 59.2 % (41.7-73.7); Nucleated Red Blood Cells % 0.1 % (0-0); Platelets 218 thou/uL (152-406); RBC Red Blood Cell Count 4.15 M/uL (3.86-4.86)
[2023-12-22 06:51] LABS: Albumin 3.2 g/dL (3.4-5.0); Albumin/Globulin Ratio 0.8 (1.1-1.8); Alkaline Phosphatase 74 U/L (45-117); Anion Gap 7.7 mEq/L (5.0-15.0); BUN Blood Urea Nitrogen 9 mg/dL (7-18); Bicarbonate 28 mEq/L (21-32); Bilirubin Total 0.4 mg/dL (0.2-1.0); Globulin 3.9 g/dL (2.3-3.5); Glomerular Filtration Rate 68 ml/min (=/>90); Glucose Level 95 mg/dL (74-106); HDL Cholesterol 31 mg/dL (40-60); LDL Cholesterol, Calculated 91 mg/dL (<130); LDL Cholesterol,Calc NonReport 91; Magnesium 1.9 mg/dL (1.6-2.4); Potassium 2.7 mEq/L (3.5-5.1); Protein, Total 7.1 g/dL (6.4-8.2); Sodium Level 141 mEq/L (136-145); Troponin High Sensitivity 32.6 pg/mL (<58.9)
[2023-12-22 06:58] LABS: ALT/SGPT < 14 U/L (13-56); AST/SGOT < 10 U/L (15-37)
--- NOTE | 2023-12-22 08:45 | P.DS ---
Admission Date: 12/21/23 Discharge Date: 12/22/23 Disposition: ROUTINE DISCHARGE Discharge Condition: GOOD Reason for Admission: Dizziness, paresthesias, subjective:Patient admitted with chest pain. Pa Consultations: Physical therapy Brief History of Present Illness: Ms. Fuller is a 63-year-old female with past medical history of hypertension and GERD. Ms. Fuller gives a confusing history. Apparently she restarted Ozempic 1 mg last p.m. and then started to feel poorly. She describes a significant headache like a band around the top of her head, photophobia, dizziness, chest pain and shortness of breath, and paresthesias to her right side to include pain in the right arm. She presented to the emergency department today for relief of her headache. CT head, CT dissection, and chest x-ray all negative. Morphine and then sumatriptan were given in an effort to reduce her headache. After the sumatriptan she did have minimal relief and tried to ambulate to the bathroom. Apparently she stumbled and almost fell but her significant other caught her. She will be observed overnight and an MRI of the brain will be performed. At present she is hemodynamically stable with a stroke scale of 0. Hospital Course: Ms. Fuller is feeling better today. MRI brain without abnormality. She is noted to be a little anemic with some iron deficiency and triglycerides are mini kyler elevated at 170. After PT evaluation today, we will discharge her home to follow-up with Dr. Sanches. She is encouraged not to restart Ozempic. We will discharge her with new medications of atorvastatin 40 mg p.o. nightly, fish oil 1000 mg p.o. daily, iron sulfate 325 mg p.o. daily with a source of vitamin C, and consider daily baby aspirin. Vital Signs/Physical Exam: Temp Pulse Resp BP Pulse Ox 97 F 56 17 124/77 100 12/21/23 20:51 12/21/23 20:51 12/21/23 20:51 12/21/23 20:51 12/21/23 20:00 General: Alert, In no apparent distress, Oriented x3 HEENT: Atraumatic, Normocephalic Neck: Supple, 2+ carotid pulse no bruit Respiratory: Clear to auscultation bilaterally, Normal air movement Cardiovascular: No edema, Regular rate/rhythm, Normal S1 S2 Capillary refill: <2 Seconds Gastrointestinal: Soft and benign Musculoskeletal: No clubbing Integumentary: No rashes Neurological: Normal speech, Normal strength at 5/5 x4 extr, Normal tone, Normal affect Lymphatics: No axilla or inguinal lymphadenopathy External genitalia: Deferred Rectal: Deferred Laboratory Data at Discharge: WBC 6.80 thou/uL (4.3-10.9) 12/22/23 06:16 Hgb 9.9 g/dL (12.0-15.0) L 12/22/23 06:16 Hct 30.0 % (36.0-45.0) L 12/22/23 06:16 Plt Count 218 thou/uL (152-406) 12/22/23 06:16 PT 13.2 SECONDS (9.4-12.5) H 12/21/23 12:50 INR 1.18 12/21/23 12:50 Sodium 141 mEq/L (136-145) 12/22/23 06:16 Potassium 2.7 mEq/L (3.5-5.1) L D 12/22/23 06:16 BUN 9 mg/dL (7-18) 12/22/23 06:16 Creatinine 0.95 mg/dL (0.55-1.02) 12/22/23 06:16 Glucose 95 mg/dL (74-106) 12/22/23 06:16 Magnesium 1.9 mg/dL (1.6-2.4) 12/22/23 06:16 Total Bilirubin 0.4 mg/dL (0.2-1.0) 12/22/23 06:16 AST < 10 U/L (15-37) L 12/22/23 06:16 ALT < 14 U/L (13-56) 12/22/23 06:16 Alkaline Phosphatase 74 U/L (45-117) 12/22/23 06:16 Triglycerides 170 mg/dL (<150) H 12/22/23 06:16 Cholesterol 156 mg/dL (<200) 12/22/23 06:16 HDL Cholesterol 31 mg/dL (40-60) L 12/22/23 06:16 Cholesterol/HDL Ratio 5.03 12/22/23 06:16 Home Medications: Amlodipine [Norvasc*] 12/21/23 Cetirizine HCl 12/21/23 Famotidine [Pepcid] 12/21/23 Losartan/Hydrochlorothiazide [Losartan-Hctz 100-25 mg Tab] 1 each PO 12/21/23 Omeprazole 12/21/23 Ondansetron [Zofran (Odt)*] 12/21/23 Sucralfate [Carafate] 12/21/23 Atorvastatin Calcium [Lipitor] 40 mg PO BEDTIME #30 tab 12/22/23 Docosahexanoic AC/Epa [Fish Oil 1,000 MG*] 1,000 mg PO DAILY #30 cap 12/22/23 Ferrous Sulfate [Ferrous Sulfate*] 325 mg PO DAILY #30 tab 12/22/23 New Medications: Ferrous Sulfate [Ferrous Sulfate*] 325 mg PO DAILY #30 tab Docosahexanoic AC/Epa [Fish Oil 1,000 MG*] 1,000 mg PO DAILY #30 cap Atorvastatin Calcium [Lipitor] 40 mg PO BEDTIME #30 tab Physician Discharge Instructions: Ms. Fuller is feeling better today. MRI brain without abnormality. She is noted to be a little anemic with some iron deficiency and triglycerides are minimally elevated at 170. After PT evaluation today, we will discharge her milady e to follow-up with Dr. Sanches. She is encouraged not to restart Ozempic. We will discharge her with new medications of atorvastatin 40 mg p.o. nightly, fish oil 1000 mg p.o. daily, iron sulfate 325 mg p.o. daily with a source of vitamin C, and consider daily baby aspirin. Diet: Regular Activity: Ad loida Followup: Saúl Sanches MD [Primary Care Provider] -
[2023-12-22] MEDS ORDERED: FOLIC ACID 5 MG/ML VIAL IVP SCH (09:00)
[2023-12-22] MEDS: ASPIRIN EC 81 MG TAB PO SCH (09:19)
[2023-12-22] MEDS: LOSARTAN POTASSIUM 50 MG TABLET PO SCH (09:19)
[2023-12-22] MEDS: FERROUS SULFATE 325 MG TAB PO SCH (09:19)
[2023-12-22] MEDS: FOLIC ACID 1 MG TABLET PO SCH (09:19)
[2023-12-22] MEDS: FAMOTIDINE 20 MG TAB PO SCH (09:19)
[2023-12-22] MEDS: DOCOSAHEXANOIC AC/EPA 1000 MG PO SCH (09:19)
[2023-12-22] MEDS: ENOXAPARIN 40 MG/0.4 ML SQ SCH (09:22)
[2023-12-22] MEDS: KCL 20 MEQ/100 mL IVPB 20 MEQ/100 ML BAG IV SCH (11:37)
[2023-12-22] MEDS: KETOROLAC 30 MG/ML INJ IV ONE (12:10)
[2023-12-22] MEDS: POTASSIUM CL SA 10 MEQ TAB PO ONE (13:25)
--- NOTE | 2023-12-22 14:09 | EKG ---
Test Date: 2023-12-21 Test Time: 11:38:49 Direct Support Professional Home Health: [facility] MEASUREMENT RESULTS: Intervals: Rate: 52 MO: 230 QRSD: 80 QT: 440 QTc: 409 [place]: P: 15 MO: 230 QRS: 26 T: 12 INTERPRETIVE STATEMENTS: Sinus bradycardia with 1st degree AV block Otherwise normal ECG Compared to ECG 08/16/2021 00:01:03 First degree AV block now present Ventricular premature complex(es) no longer present Electronically Signed On 12-22-23 14:07:17 CDT by Clarence Harry
[2023-12-22 16:31] VITALS: BP 121/68; TEMP 97.2
== END 2023-12-22 18:03 | disposition home or self-care (01) ==
LOC: ER 11:04 → ERHOLD 16:50 → 2ND 19:09
PROVIDERS: ADMIT Internal Medicine; ATTEND Internal Medicine Sleep Medicine
DX: R07.9 Chest pain, unspecified (principal); R51.9 Headache, unspecified; R42 Dizziness and giddiness; R20.2 Paresthesia of skin; D50.0 Iron deficiency anemia secondary to blood loss (chronic); K21.9 Gastro-esophageal reflux disease without esophagitis; K59.00 Constipation, unspecified; E87.6 Hypokalemia; I10 Essential (primary) hypertension
CPT/HCPCS: 93005; 85025 ×2; 80048; 36415 ×2; 83735; 84132; 85610; 80061; 82565; 82947 ×2; 80076; 84443; 84484 ×3; 82728; 83540; 80053; 83880; 70450; 71275; 74175; 71045; 70551; 97116; 97161; 97530; Q9967; J3030; J3480; J2470 ×2; J1650; J2405; J7030 ×2; G0378